=== PATIENT | female | born 1980 | race Caucasian/White ===

== ENCOUNTER 2016-11-15 11:07 | Emergency (ER) ==
[2016-11-15 13:05] LABS: URINE CULTURE PL NEEDED? NO
[2016-11-15 13:17] LABS: URINE WBC <10 /HPF (<10)
[2016-11-15 13:18] LABS: BILIRUBIN URINE NEGATIVE (NEGATIVE); BLOOD URINE NEGATIVE (NEGATIVE); CLARITY CLEAR (CLEAR); COLOR YELLOW; GLUCOSE URINE NEGATIVE (NEGATIVE); LEUKOCYTES URINE NEGATIVE (NEGATIVE); NITRITE URINE NEGATIVE (NEGATIVE); PH URINE 6.5; PROTEIN URINE NEGATIVE (NEGATIVE); SP GRAVITY URINE 1.005; URINE EPITHELIAL CELLS <10 /HPF (<10); UROBILINOGEN URINE NORMAL
--- NOTE | 2016-11-15 13:44 | PROVIDER DOCUMENTATION ---
HPI-EENT General - General Chief Complaint: Sore Throat Stated Complaint: SORE THROAT Time Seen by Provider: 11/15/16 12:02 Source: patient Allergies/Adverse Reactions: Patient Allergies Allergy/AdvReac Type Severity Reaction Status Date / Time No Known Allergies Allergy Verified 10/24/15 08:50 Home Medications: Home Medication List Medication Instructions Recorded Confirmed Last Taken Type Hydrocodone Bit/Acetaminophen 1 tab PO Q8HR 07/12/14 10/24/15 10/23/15 08:00 History [Hydrocodon-Acetaminophn 10-325] Pregabalin [Lyrica] 150 mg PO BID 07/12/14 10/24/15 10/23/15 08:00 History Azithromycin 500 mg PO DAILY #5 tablet 10/24/15 Unknown Rx Gabapentin 600 mg PO BID 10/24/15 10/24/15 10/23/15 08:00 History Lorazepam [Ativan] 2 mg PO PRN PRN 10/24/15 10/24/15 10/23/15 08:00 History Metaxalone [Skelaxin] 800 mg PO TID 10/24/15 10/24/15 10/23/15 08:00 History Oseltamivir [Tamiflu] 75 mg PO BID #10 capsule 10/24/15 Unknown Rx Vortioxetine Hydrobromide 10 mg PO DAILY 10/24/15 10/24/15 10/23/15 08:00 History [Brintellix] Famotidine [Pepcid] 20 mg PO DAILY #20 tablet 11/15/16 Unknown Rx Ibuprofen [Motrin] 800 mg PO Q8H PRN PRN #20 tablet 11/15/16 Unknown Rx Nystatin Susp [Mycostatin Susp] 5 ml PO 4XDAY #1 bottle 11/15/16 Unknown Rx Tramadol [Ultram] 50 mg PO Q8HR #3 tablet 11/15/16 Unknown Rx - History of Present Illness-EENT General Nature of Presenting Problem: 35 year old obese WF presents with c/o cough, sore throat, white film to tongue/ tongue tenderness and low back pain, entire body joint pain and muscle aches. pt 's daughter has been diagnosed with strep throat. pt denies taking any OTC meds for this pain. pt reports her throat is so sore she is unable to eat/drink. pt in no distress, swallowing during H&p without difficulty. denies voice change/ muffled voice. Review of Systems - Adult - REVIEW OF SYSTEMS - ADULT Constitutional: reports: no symptoms reported. denies: chills, fever, fatique Eyes: reports: no symptoms reported. denies: discharge, blurred vision, double vision, redness Ears, Nose, Mouth & Throat: reports: see HPI, mouth/dental pain, throat pain, throat swelling. denies: ear discharge, ear pain, hearing loss, tinnitus, epistaxis, sinus problem, nose pain, loose teeth, mouth swelling, hoarseness Cardiovascular: reports: no symptoms reported. denies: chest pain, palpitations , syncope Respiratory: reports: see HPI, cough. denies: chronic cough, dyspnea on exertion, excessive sputum production, hemoptysis, pleurisy, shortness of breath , wheezing Gastrointestinal: reports: no symptoms reported. denies: abdominal pain, diarrhea, nausea, vomiting Genitourinary: reports: no symptoms reported. denies: dysuria, hematuria, urgency Musculoskeletal: reports: no symptoms reported. denies: bone pain, joint pain, joint swelling, neck pain Integumentary: reports: no symptoms reported. denies: hives, itching, rash, skin sores/ulcer Neurological: reports: no symptoms reported. denies: ataxia, slurred speech, syncope Psychiatric: reports: no symptoms reported Endocrine: reports: no symptoms reported Hematologic/Lymphatic: reports: no symptoms reported Allergic/Immunologic: reports: no symptoms reported All Other Systems: Reviewed and Negative Past History - Adult - PAST MEDICAL HISTORY-ADULT Review of Records: reports: Old Records Reviewed, Nursing Assessment Review, Medications Reviewed, Social history reviewed & non-contributory. Major Childhood Illnesses: reports: denies history Cardiovascular: reports: denies history Respiratory: reports: denies history Gastrointestinal: reports: denies history Obstetrical/Gynecological: reports: other (hysterectomy) Genitourinary: reports: denies history Musculoskeletal: reports: fibromyalgia Neurological: reports: denies history Endocrine/Immune: reports: denies history Other Conditions: reports: denies history - PRIOR SURGERIES/PROCEDURES Surgical/Procedure History: reports: hysterectomy, BTL, , other ( carpal tunnel ) - IMMUNIZATION STATUS Childhood Immunizations: UTD Flu Vaccine: NUTD - FAMILY HISTORY Family History: reviewed, not pertinent - SOCIAL HISTORY Smoking: cigarettes Provider spent 3-5 mins advising pt. on dangers of tobacco.: Discussed manners to quit use, and f/u contacts for add'l counseling. Substance Use: none/never Alcohol Use Frequency: never Physical Exam- EENT - Physical Exam EENT Initial Vital Signs Reviewed: Yes General Appearance: appears well, alert, no apparent distress, obese. negative : mild distress, moderate distress, severe distress, lethargic, slow to respond , obtunded, combative Eye Exam: bilateral eye: normal inspection Ear Exam: bilateral ear: auricle normal, canal normal, TM normal Nasal Exam: normal inspection Throat Exam: normal mouth inspection, pharynx tenderness. negative: pharynx normal (mild erythema), dental tenderness, excessive drooling, foreign body, mandibular swelling, maxillary swelling, pharynx swelling, tonsillar exudate, tonsillar swelling, trismus, uvula swelling, voice changes Mouth,Throat: 1 - white patchy film to tongue Neck: non-tender, full range of motion, supple, normal inspection. negative: C- spine tenderness, limited range of motion, tender lateral, tender midline Respiratory: chest non-tender, lungs clear, normal breath sounds, no pleuratic chest pain, no respiratory distress, no accessory muscle use. negative: respiratory distress, decreased breath sounds, accessory muscle use, crackles, rales, rhonchi, wheezing Cardiovascular: normal peripheral pulses, regular rate, rhythm, no edema, no gallop Abdominal Exam: normal bowel sounds, non tender, soft Lymphatic: no adenopathy Back Exam: normal inspection, no CVA tenderness, no vertebral tenderness. negative: CVA tenderness, decreased range of motion, swelling, vertebral tenderness Extremity: normal range of motion, non-tender, normal gait, normal inspection, no pedal edema, no calf tenderness, normal capillary refill Integumentary: normal color, normal turgor, warm/dry Neurologic: grossly normal, no motor/sensory deficits Psych/Mental Status: normal mood/affect, normal thought content, normal thought process, oriented x 3 Progress - PLAN OF CARE/RESULTS Progress/Plan/Lab Results: Laboratory Tests 11/15/16 11/15/16 11/15/16 11:20 12:36 12:38 Urine Source VOIDED Urine Color YELLOW Urine Clarity CLEAR Urine pH 6.5 Ur Specific [place] 1.005 Urine Protein NEGATIVE Urine Ketones NEGATIVE Urine Blood NEGATIVE Urine Nitrite NEGATIVE Urine Bilirubin NEGATIVE Urine Urobilinogen NORMAL Urine WBC NEGATIVE Urine Microscopic WBC <10 Ur Epithelial Cells <10 Urine Glucose NEGATIVE Influenza A (Rapid) NEGATIVE Influenza B (Rapid) NEGATIVE Group A Strep Rapid NEGATIVE Orders Category Date Time Status cxr [CHEST-2 VIEWS] [RAD] Stat Exams 11/15/16 12:[address] Stat Lab 11/15/16 11:20 Completed Flu [INFLUENZA SCREEN PL] Stat Lab 11/15/16 12:38 Completed UA NIMS W/REFLEX CULT PL [URINALYSIS] Stat Lab 11/15/16 12:36 Completed Ibuprofen [Motrin] Med 11/15/16 13:45 Discontinued 600 mg PO NOW ONE - XRAY 1 XRAY Study: Chest Impression: Normal (no evidence of acute disease per Dr. Park) Departure - Departure Time of Disposition Order: 13:41 DIAGNOSIS: Thrush, oral, Viral syndrome URI (upper respiratory infection) Qualifiers: URI type: unspecified viral URI Qualified Code(s): J06.9 - Acute upper respiratory infection, unspecified Disposition: HOME 01 Certified Medical Emergency: Emergent Condition: Stable Additional Instructions: Follow up with your primary care doctor as needed. No work for 2 days. Drink plenty of water, fluids. ED Follow Up Instructions: You have been treated by a care provider in the Emergency Department. These instructions are being provided to you so you can have an understanding of how to care for yourself upon discharge. Upon discharge from the Emergency Department, you are responsible for making arrangements for follow-up care by a physician of your choice. Take all prescribed medications as directed. Return to the Emergency Department immediately for any new or worsening symptoms. You may call the Physician Referral phone number at [phone] to obtain a list of Physicians who are taking new patients. Prescriptions: Ibuprofen [Motrin] 800 mg PO Q8H PRN PRN #20 tablet PRN Reason: inflammation Nystatin Susp [Mycostatin Susp] 5 ml PO 4XDAY #1 bottle Famotidine [Pepcid] 20 mg PO DAILY #20 tablet Tramadol [Ultram] 50 mg PO Q8HR #3 tablet Referrals: Madhuri Barrett CRNP [Primary Care Provider] - Forms: Return to School/Parent Work Instructions: Ibuprofen tablets and capsules, Viral Infections, [id number], Tramadol tablets, Upper Respiratory Infection, Adult, [id number] Attestation - Physician/ ODILON Attestation Patient care was provided by Advanced Practice Provider:: Yes Advanced Practice Provider:: Farhana Ervin Advanced Practice Provider documentation review:: The Mid-level provider documentation, treatment plan and medical decision making was reviewed by the physician who agrees with all treatment and medical decision making by the MLP.
[2016-11-15] MEDS ORDERED: MOTRIN PO ONE (13:45)
[2016-11-15 13:50] VITALS: BP 117/79
[2016-11-15 14:19] LABS: URINE SOURCE VOIDED
--- NOTE | 2016-11-15 16:04 | Diag Imaging Result Document ---
PROCEDURE NAME: CHEST-2 VIEWS - 11/15/2016 CHEST, 2 VIEWS: COMPARISON: 10/24/2015. FINDINGS: Heart size is normal and decreased compared to the previous exam. Lungs appear clear. There is no pleural effusion or pneumothorax identified. There is mild mid thoracic spondylosis noted. IMPRESSION: No evidence of acute disease.
== END 2016-11-15 13:51 | disposition home or self-care (01) ==
LOC: P.ED 11:07
DX: J06.9 Acute upper respiratory infection, unspecified (principal); B37.0 Candidal stomatitis; B34.9 Viral infection, unspecified; J02.9 Acute pharyngitis, unspecified; R05 Cough; M54.5 Low back pain; M79.1 Myalgia; M25.50 Pain in unspecified joint; K08.89 Other specified disorders of teeth and supporting structures; R22.1 Localized swelling, mass and lump, neck; M79.7 Fibromyalgia; E66.9 Obesity, unspecified; F17.210 Nicotine dependence, cigarettes, uncomplicated; Z79.899 Other long term (current) drug therapy; Z71.6 Tobacco abuse counseling
CPT/HCPCS: 71020; 81001; 87081; 87430; 87804; 99284